=== PATIENT | male | born 2000 | race Two or more races ===

== ENCOUNTER 2023-12-07 21:44 | Emergency (ER) | payer MEDICAID, OTHER ==
[~2023-12-07] VITALS: Ht 190.5 cm; Wt 101.9 kg
[2023-12-08 01:02] VITALS: BP 135/73; PULSE 103; RESP 17; O2SAT 99
[2023-12-08 01:14] VITALS: TEMP 100.1
[2023-12-08] MEDS: ACETAMINOPHEN 325 MG TAB PO ONE (01:14)
[2023-12-08] MEDS: PENICILLIN G BENZ 1,200,000 UNITS/2 ML SYRG IM ONE (01:14)
[2023-12-08] MEDS ORDERED: ACET500T58 PO (01:15)
[2023-12-08] MEDS ORDERED: IBUP-1455 PO (01:15)
== END 2023-12-08 01:37 | disposition home or self-care (01) ==
LOC: ER 21:44
DX: J02.0 Streptococcal pharyngitis (principal)
CPT/HCPCS: 96372; 99283; J0561